=== PATIENT | male | born 1995 | race African-American/Black ===

== ENCOUNTER 2018-08-05 11:07 | Emergency (ER) | payer BC, OTHER ==
[~2018-08-05] VITALS: Ht 188 cm; Wt 103.1 kg
[2018-08-05 11:12] VITALS: BP 141/76
== END 2018-08-05 11:47 | disposition home or self-care (01) ==
LOC: ER 11:09
DX: S06.0X1A Concussion with loss of consciousness of 30 minutes or less, initial encounter (principal); W21.81XA Striking against or struck by football helmet, initial encounter; Y93.61 Activity, american tackle football; Y92.89 Other specified places as the place of occurrence of the external cause; Y99.8 Other external cause status
CPT/HCPCS: 99281

== ENCOUNTER 2018-08-06 08:40 | Emergency (ER) | payer BC, OTHER ==
[~2018-08-06] VITALS: Ht 188 cm; Wt 100.0 kg
[2018-08-06 08:41] VITALS: BP 130/75
== END 2018-08-06 09:26 | disposition home or self-care (01) ==
LOC: ER 08:40
DX: S06.9X9A Unspecified intracranial injury with loss of consciousness of unspecified duration, initial encounter (principal); F07.81 Postconcussional syndrome; X58.XXXA Exposure to other specified factors, initial encounter; Y93.89 Activity, other specified; Y92.89 Other specified places as the place of occurrence of the external cause; Y99.8 Other external cause status
CPT/HCPCS: 99281